=== PATIENT | male | born 1935 | race Caucasian/White ===

== ENCOUNTER 2019-01-29 07:35 | Outpatient (CLI) | payer OTHER, SELFPAY ==
[2019-01-29] VITALS (7 sets, daily range): BP systolic 131–176; BP diastolic 78–107; PULSE 81–88; RESP 14–16; TEMP 36.2; O2SAT 96–100
--- NOTE | 2019-01-29 07:37 | DI.RAD.S_ITS ---
PROCEDURE: PAIN L/S TRANSFORAMINAL INJECT INDICATIONS: INTERVERTEBRAL DISC DISPLACEMENT FINDINGS: Fluoroscopic spot filming was performed to verify placement of spinal needles at the L3-4 level(s), as labeled on the films. Appropriate location(s) of the needle tip(s) was confirmed by injection of iodinated contrast. IMPRESSION: Fluoroscopic needle placement as above. Dictated by: Ghada Peterson M.D. on 01/29/2019 at 18:26 Approved by: Ghada Peterson M.D. on 01/29/2019 at 18:27
[2019-01-29] MEDS: fentaNYL 100 MCG/2 ML INJ 50 MCG IV (09:10)
[2019-01-29] MEDS: MIDAZOLAM 5 MG/5 ML VIAL IV (09:10)
[2019-01-29] MEDS: IOPAMIDOL 15 ML VIAL 3 ML INJ (09:24)
[2019-01-29] MEDS: BETAMETHASONE 30 MG/5 ML MDV 6 MG INJ (09:24)
[2019-01-29] MEDS: DEXAMETHASONE 10 MG/ML VIAL 20 MG INJ (09:25)
--- NOTE | 2019-01-29 09:31 | PC.NURSE ---
Pt tolerated the procedure fairly, needed some extra sedation medication as it was really painful for him. It required a 2 person minimal assist to get him off the table. Transferred pt via wheelchair to pre procedure room for continued monitoring with Maren DUBOSE.
--- NOTE | 2019-01-29 09:34 | PM.PROC.1 ---
Procedures Date/Time Date of procedure: 01/29/19 Time of procedure: 09:34 General Procedure description: PROVIDER: Julian Parker DO Operative Note PREOP DIAGNOSIS 1. FORAMINAL STENOSIS WITH LE SYMPTOMS, POST OP DIAGNOSIS 1. FORAMINAL STENOSIS WITH LE SYMPTOMS, PROCEDURES 1. FLUOROSCOPICALLY GUIDED CONTRAST CONTROLLED TRANSFORAMINAL EPIDURAL STEROID INJECTION - RIGHT L3/4 TFESI SURGEON: Julian Parker DO INDICATIONS Jameson is referred by Dr. Blackburn for treatment of Foraminal Stenosis with right LE Symptoms FINDINGS Foraminal Nerve Root Compression secondary to disc disease and facet hypertrophy DESCRIPTION OF PROCEDURE Following review of allergy and review of potential side effects and complications, including, but not necessarily limited to, infection, allergic reaction, local tissue breakdown, stroke, temporary or permanent nerve injury, paralysis, and possible , the patient indicated that the patient understood and agreed to proceed. An informed consent document was signed by the patient, witnessed by a nurse, and placed in the patient's chart. Additionally, other treatment options including medications, modalities, and physical therapy were reviewed with the patient. After review of previous anaesthesic history and IV conscious sedation the patient was deemed safe to proceed with todays procedure with IV conscious sedation as ASA class II designation. Safety time-out was performed to confirm patient ID, procedure to be performed and site of procedure. IV sedation was accomplished with a combination of 4mg of Versed and 50mcg of Fentanyl was administered by the RN after DO order, titrated to patient comfort during the course of the procedure while the patient remained responsive to all verbal commands In the prone position following sterile prep and drape of the lumbar region, the right L3/4 posterior neuroforamen was identified fluoroscopically. The skin was anesthetized via a 25-gauge 1.5-inch needle with 1% lidocaine solution. At this point, a 25-gauge 3.5-inch spinal needle was atraumatically introduced and advanced under fluoroscopic guidance through the posterior right L3/4 neuroforamen to approximately the anterior aspect of the canal. Depth was confirmed on lateral view. Following negative aspiration, injection of approximately 1.5 cc of Isovue 200 under live fluoroscopy in the AP view confirmed excellent flow along the nerve root, into the epidural space without vascular or intrathecal uptake observed Radiological data, including multiple fluoroscopic views of the lumbosacral spine, reveal a spinal needle at the right L3/4 posterior neuroforamen. Subsequent views show flow of contrast material flowing superiorly and inferiorly along the nerve root confirming epidural flow. Subsequently, a test dose of 1.5 cc of 1% lidocaine solution was administered and patient was observed for two minutes for signs or symptoms of complications, including abdominal pain, shortness of breath, bilateral upper or lower extremity weakness, nausea and vomiting, prior to steroid injection. At this point, a total of 3cc or 20mg of dexamethasone and 6mg of betamethasone was injected without incident. The patient tolerated the procedure well without signs or symptoms of complications prior to transfer to the recovery area continued monitoring without incident. The patient was then transferred to the recovery area where they were observed for an appropriate time after the injection. The patient reported a VAS score of 7 prior to the procedure and a post-procedure VAS of 0. Total Fluoroscopy Time: 24.2 seconds Total Conscious Sedation Time: 24min POST OP INSTRUCTIONS The patient was provided a Pain Log to continue to record their response to the target-specific procedure prior to follow-up visit with their referring physician. Additionally, specific post-injection care instructions and a contact number to our office were provided if concerns arise regarding possible complications associated with the procedure are suspected. Julian Parker, Complications: none
[2019-01-29] MEDS: BUPIVACAINE 0.25% (PF) VIAL 2 ML INJ (09:44)
--- NOTE | 2019-01-29 09:48 | PC.NURSE ---
ACCEPTED CARE OF PT IN POST PROC AREA AT APPROX 0940 IN STABLE CONDITION
== END 2019-01-29 10:20 | disposition home or self-care (01) ==
PROVIDERS: Family Provider Family Medicine; PCP Family Medicine; Visit Provider Physical Medicine & Rehabilitation
DX: M51.26 Other intervertebral disc displacement, lumbar region (principal)
CPT/HCPCS: 64483; 99152; J0702; J1100; J2250; J3010